=== PATIENT | male | born 1990 | race American Indian/Alaskan Native ===

== ENCOUNTER 2020-06-01 07:29 | Emergency (ER) | payer OTHER ==
[~2020-06-01] VITALS: Ht 180.3 cm; Wt 90.9 kg
[2020-06-01 07:34] VITALS: BP 135/93; TEMP 98.4
[2020-06-01] MEDS ORDERED: CLEOCIN HCL300 MG PO (07:57)
[2020-06-01] MEDS ORDERED: NORCO 325 MG-51 TAB PO (07:57)
[2020-06-01 08:13] VITALS: PULSE 81
== END 2020-06-01 08:16 | disposition home or self-care (01) ==
LOC: COL.ER 07:29
DX: J36 Peritonsillar abscess (principal)
CPT/HCPCS: J8540

== ENCOUNTER 2020-06-09 12:05 | Emergency (ER) | payer OTHER ==
[~2020-06-09] VITALS: Ht 180.3 cm; Wt 90.9 kg
[~2020-06-09 12:05] MED LIST: CLEOCIN HCL300 MG PO; NORCO 325 MG-51 TAB PO
[2020-06-09 12:09] VITALS: TEMP 98
[2020-06-09] MEDS ORDERED: ADVIL200 MG PO (12:25)
[2020-06-09 12:43] LABS: BASO # 0.1 (0.0-0.2); BASO % 0.8 % (0.0-2.0); EOS # 0.4 (0.0-0.7); EOS % 3.3 % (0-4.0); GRAN # 6.7 (1.4-6.5); GRAN % 56.2 % (42.2-75.2); HEMATOCRIT 49.8 % (42.0-52.0); HEMOGLOBIN 16.4 g/dl (13.5-18.0); LYMPH # 3.6 (1.2-3.4); LYMPH % 30.1 % (20.0-51.0); MEAN CELL VOLUME 83 fl (80.0-100.0); MEAN CORPUSCULAR HEMOGLOBIN 27 pg (27.0-31.0); MEAN CORPUSCULAR HGB CONC 33 g/dl (33.0-37.0); MEAN PLATELET VOLUME 10.5 fl (7.4-10.4); MONO # 1.1 (0.1-0.6); MONO % 8.8 % (1.7-9.3); PLATELET COUNT 313 K/mm3 (130-400); RED BLOOD COUNT 6.03 M/mm3 (4.20-5.60); REDCELL DISTRIBUTION WIDTH-CV 12.9 % (11.5-14.5)
[2020-06-09 12:50] LABS: ALANINE AMINOTRANSFERASE 16 U/L (4-49); ALBUMIN 4.7 gm/dL (3.5-5.0); ALKALINE PHOSPHATASE 79 U/L (50-136); ANION GAP 9 mmol/L (7-16); AST,SGOT 32 U/L (15-37); BILIRUBIN,TOTAL 0.5 mg/dL (0.0-1.0); BLOOD UREA NITROGEN 11 mg/dL (9-20); CALCIUM 9.8 mg/dL (8.4-10.2); CARBON DIOXIDE 27 mmol/L (22-30); CHLORIDE 105 mmol/L (98-107); CREATININE, serum 0.79 (0.66-1.25); GLUCOSE 95 mg/dL (74-106); POTASSIUM 4.2 mmol/L (3.4-5.0); SODIUM 141 mmol/L (137-145)
[2020-06-09 13:07] LABS: TROPONIN-I < 0.012 ng/mL (0.000-0.035)
[2020-06-09] MEDS ORDERED: FLEXERIL 1010 MG/TAB PO (13:25)
[2020-06-09 13:40] VITALS: BP 113/83; PULSE 63
== END 2020-06-09 13:40 | disposition home or self-care (01) ==
LOC: COL.ER 12:05
PROVIDERS: Physician Assistant
DX: S16.1XXA Strain of muscle, fascia and tendon at neck level, initial encounter (principal); M54.12 Radiculopathy, cervical region; M62.838 Other muscle spasm; M50.323 Other cervical disc degeneration at C6-C7 level; F17.200 Nicotine dependence, unspecified, uncomplicated
CPT/HCPCS: J1885; J3360